=== PATIENT | female | born 1955 | race Caucasian/White ===

== ENCOUNTER 2017-11-01 13:37 | Emergency (ER) | payer SELFPAY ==
[~2017-11-01] VITALS: Ht 157.5 cm; Wt 90.0 kg
[2017-11-01 13:41] VITALS: BP 123/66
[2017-11-01] MEDS ORDERED: TRAZ-220 PO (13:46)
[2017-11-01] MEDS ORDERED: TRAM50TA4 PO (13:46)
[2017-11-01] MEDS ORDERED: MESA0.37 PO (13:46)
[2017-11-01] MEDS ORDERED: FOLI0.4T4 PO (13:46)
[2017-11-01] MEDS ORDERED: ATOR40TA28 PO (13:46)
== END 2017-11-01 14:53 | disposition left against medical advice (07) ==
LOC: EMS 13:39
DX: R10.10 Upper abdominal pain, unspecified (principal); R19.7 Diarrhea, unspecified; Z53.21 Procedure and treatment not carried out due to patient leaving prior to being seen by health care provider
CPT/HCPCS: 93005